=== PATIENT | female | born 2000 | race Two or more races ===

== ENCOUNTER → 2025-01-27 | Outpatient (CLI) | payer MEDICAID, SELFPAY ==
--- NOTE | 2025-01-27 09:38 | XR_ITS ---
Examination: Wrist, right 3 views Technique: Wrist AP, oblique, lateral 3 views Date and time of exam: January 27, 2025, 0934 hours INDICATIONS: Right wrist pain beginning 2 weeks ago FINDINGS: Minimal narrowing radiocarpal joint No fracture or dislocation No avascular necrosis No erosive arthritic change IMPRESSION: No fracture or dislocation No erosive or other significant arthritic change
== END | disposition home or self-care (01) ==
LOC: SDIM 08:56
PROVIDERS: Referring Provider Physician Assistant; Visit Provider Physician Assistant
DX: M25.531 Pain in right wrist (principal)
CPT/HCPCS: 73110